=== PATIENT | male | born 1955 | race Caucasian/White ===

== ENCOUNTER 2024-10-08 20:31 | Inpatient (IN) | payer MEDICARE, MEDICAID ==
[~2024-10-08] VITALS: Ht 177.8 cm; Wt 68.9 kg
[2024-10-08] MEDS ORDERED: FOLI-130 PO (20:55)
[2024-10-08] MEDS ORDERED: THIA100T80 PO (20:55)
[2024-10-08] MEDS ORDERED: ATOR40TA28 PO (20:55)
[2024-10-08] MEDS ORDERED: MICO14CR6 TP (20:55)
[2024-10-08] MEDS ORDERED: ACET-2247 PO (20:55)
[2024-10-08] MEDS ORDERED: ALBU18HF12 IH (20:55)
[2024-10-08] MEDS ORDERED: CHOL500013 PO (20:55)
[2024-10-08] MEDS ORDERED: MAGN-169 PO (20:55)
[2024-10-08] MEDS ORDERED: LIDO1ADH72 TP (20:55)
[2024-10-08] MEDS ORDERED: POLYOS OU (20:55)
[2024-10-08] MEDS ORDERED: MULT-413 PO (20:55)
[2024-10-08] MEDS ORDERED: CITA10TA99 PO (20:55)
[2024-10-08] MEDS ORDERED: SENN-376 PO (20:55)
[2024-10-08] MEDS ORDERED: INSLAN SQ (20:55)
[2024-10-08] MEDS ORDERED: CLOP75TA83 PO (20:55)
[2024-10-08] MEDS ORDERED: INSNOV SQ (20:55)
[2024-10-08] MEDS ORDERED: LACT1CAP70 PO (20:55)
[2024-10-08] MEDS ORDERED: ASPI-1444 PO (20:55)
[2024-10-08] MEDS ORDERED: CITA-144 PO (20:55)
[2024-10-08] MEDS ORDERED: MINE133E26 PR (20:55)
[2024-10-08] MEDS ORDERED: METF-1211 PO (20:55)
[2024-10-08] MEDS ORDERED: CEFU250T87 PO (20:55)
[2024-10-08] MEDS ORDERED: PREG75 PO (20:55)
[2024-10-08] MEDS ORDERED: BISA-151 PO (20:55)
[2024-10-08 21:48] LABS: BASOPHILS % (AUTO) 0.5 % (0.0-2.0); EOSINOPHILS % (AUTO) 2.5 % (1.0-6.0); HEMATOCRIT 41.5 % (41-53); HEMOGLOBIN 13.7 g/dL (13.5-17.5); LYMPHOCYTES # (AUTO) 1.4 K/uL (1.0-4.8); LYMPHOCYTES % (AUTO) 14.4 % (22.0-44.0); MEAN CORPUSCULAR HEMOGLOBIN 28.6 pg (26.0-34.0); MEAN CORPUSCULAR VOLUME 87 fL (80-100); MONOCYTES % (AUTO) 10.5 % (2.0-9.0); NEUTROPHILS % (AUTO) 72.1 % (40.0-70.0); PLATELET COUNT (AUTO) 257 K/uL (150-450); RED CELL DISTRIBUTION WIDTH 13.3 % (11.5-14.5); WHITE BLOOD COUNT (AUTO) 9.7 K/uL (4.5-11.0)
[2024-10-08 21:53] LABS: COVID AG,FIA SOURCE NASAL SWAB
[2024-10-08 21:57] LABS: ANION GAP 5 mmol/L (8-16); CARBON DIOXIDE 30 mmol/L (22-29); CHLORIDE 100 mmol/L (98-107); GLOMERULAR FILTR. RATE CALC > 60 mL/min (>60); GLUCOSE,RANDOM 141 mg/dL (70-110); POTASSIUM 4.2 mmol/L (3.5-5.1); SODIUM SERUM 135 mmol/L (136-145); UREA NITROGEN, BLOOD 14 mg/dL (7-18)
[2024-10-08 22:02] LABS: CALCIUM, TOTAL 8.9 mg/dL (8.8-10.5)
[2024-10-08 22:04] LABS: ALCOHOL, BLOOD (SERUM) < 3 mg/dL (0-10)
[2024-10-08 22:13] LABS: SARS-COV2 (COVID) ANTIGEN,FIA Negative (Negative)
[2024-10-09 00:56] LABS: APPEARANCE,URINE CLEAR (CLEAR); BILIRUBIN,URINE NEGATIVE (NEGATIVE); COLOR,URINE LIGHT YELLOW (YELLOW); GLUCOSE, URINE (UA) 70-100 mg/dL (NEGATIVE); KETONES,URINE NEGATIVE (NEGATIVE); LEUKOCYTE ESTERASE ,URINE NEGATIVE (NEGATIVE); NITRATE,URINE NEGATIVE (NEGATIVE); OCCULT BLOOD,URINE SMALL (NEGATIVE); PH,URINE 5.5 (5.0-8.0); PH,URINE DRUG SCREEN 5.5 (5.0-8.0); PROTEIN,URINE NEGATIVE (NEGATIVE); SPECIFIC GRAVITIY, URINE 1.014 (1.003-1.030); UROBILINOGEN,URINE <=1.0 mg/dL (<=1.0)
[2024-10-09 00:58] LABS: BACTERIA,URINE None Seen /HPF (None Seen); SQUAMOUS EPITHELIAL CELL,UR Few /LPF (None Seen); WBC,URINE None Seen /HPF (0-5)
[2024-10-09 01:01] LABS: ALCOHOL, URINE DRUG SCREEN NEGATIVE (NEGATIVE); AMPHET/METH SCREEN,URINE NEGATIVE (NEGATIVE); BARBITURATE SCREEN, URINE NEGATIVE (NEGATIVE); BENZODIAZEPINES SCREEN,URINE NEGATIVE (NEGATIVE); CANNABINOID SCREEN,URINE NEGATIVE (NEGATIVE); COCAINE SCREEN,URINE NEGATIVE (NEGATIVE); METHADONE SCREEN, URINE NEGATIVE (NEGATIVE); OPIATE SCREEN,URINE NEGATIVE (NEGATIVE); PHENCYCLIDINE SCREEN,URINE NEGATIVE (NEGATIVE)
[2024-10-09] MEDS: LORazepam 2 MG TABLET PO PRN (10:23)
[2024-10-09 19:26] LABS: GLUCOMETER DEV NAME(LOC) ERT.6; GLUCOSE,POINT OF CARE 96 MG/DL (70-110)
[2024-10-09] MEDS: haloperidoL LACTATE 5 MG/ML VIAL IM ONE (21:36)
[2024-10-09] MEDS: DiphenhydrAMINE HCL 50 MG/ML VIAL IM ONE (21:36)
[2024-10-09] MEDS: LORazepam 2 MG/ML VIAL IM ONE (21:36)
[2024-10-10 07:21] LABS: GLUCOMETER DEV NAME(LOC) ERT.6; GLUCOSE,POINT OF CARE 116 MG/DL (70-110)
[2024-10-10] MEDS: MetFORMIN HCL 500 MG TABLET PO SCH (08:11)
[2024-10-10] MEDS: CLOPIDOGREL BISULFATE 75 MG TABLET PO SCH (08:11)
[2024-10-10] MEDS: ASPIRIN 81 MG CHEWABLE TABLET PO SCH (08:11)
[2024-10-10] MEDS: INSULIN GLARGINE,HUM.REC.ANLOG 100 UNITS/ML SQ SCH (08:12)
[2024-10-10 12:30] LABS: GLUCOMETER DEV NAME(LOC) ERT.6; GLUCOSE,POINT OF CARE 131 MG/DL (70-110)
[2024-10-10] MEDS: haloperidoL 5 MG TABLET PO PRN (14:56)
[2024-10-10 17:05] LABS: GLUCOMETER DEV NAME(LOC) ERT.6; GLUCOSE,POINT OF CARE 100 MG/DL (70-110)
[2024-10-10] MEDS: ZOLPIDEM TARTRATE 10 MG TABLET PO PRN (21:26)
[2024-10-11] MEDS: LORazepam 2 MG/ML VIAL IVP ONE (03:27)
[2024-10-11] MEDS: ACETAMINOPHEN 325 MG TABLET PO ONE (04:28)
[2024-10-11] MEDS: DiphenhydrAMINE HCL 50 MG/ML VIAL IVP ONE (05:11)
[2024-10-11] MEDS: LORazepam 2 MG/ML VIAL IM ONE (05:11)
[2024-10-11] MEDS: haloperidoL LACTATE 5 MG/ML VIAL IM ONE (05:11)
[2024-10-11 08:55] LABS: GLUCOMETER DEV NAME(LOC) ERT.6; GLUCOSE,POINT OF CARE 122 MG/DL (70-110)
[2024-10-11 23:03] VITALS: BP 148/56; PULSE 66; RESP 18; TEMP 97.3; O2SAT 98
[2024-10-11 23:33] VITALS: BP 148/56; PULSE 66; RESP 18; TEMP 97.3; O2SAT 98
[2024-10-12] MEDS ORDERED: MAGNESIUM HYDROXIDE SUSPENSION 30 ML UDCUP PO PRN (00:15)
[2024-10-12] MEDS ORDERED: DOCUSATE SODIUM 100 MG CAPSULE PO PRN (00:15)
[2024-10-12] MEDS ORDERED: ALBUTEROL SULFATE HFA 90 MCG/PUFF 8 GM INHALER IH PRN (00:15)
[2024-10-12] MEDS ORDERED: MAG HYDROX/ALUMINUM HYD/SIMETH ES 30 ML SUSPENSION UDCUP PO PRN (00:15)
[2024-10-12] MEDS ORDERED: NICOTINE 14 MG/24 HOUR PATCH TD PRN (00:15)
[2024-10-12] MEDS ORDERED: GuaiFENesin/D-METHORPHAN [SUGAR-FREE] 200-20MG/10 ML SYRUP UDCUP PO PRN (00:15)
[2024-10-12] MEDS ORDERED: LOPERAMIDE HCL 2 MG CAPSULE PO PRN (00:15)
[2024-10-12] MEDS ORDERED: ONDANSETRON 4 MG TABLET PO PRN (00:15)
[2024-10-12] MEDS ORDERED: PETROLATUM,WHITE 28 GM JELLY TP PRN (00:15)
[2024-10-12] MEDS ORDERED: DEXTROSE 50%-WATER 25 GM/50 ML SYRINGE IVP PRN (00:30)
[2024-10-12] MEDS: INSULIN LISPRO 100 UNITS/ML SQ PRN (07:06)
[2024-10-12] MEDS: CITALOPRAM HYDROBROMIDE 10 MG TABLET PO SCH (11:00)
[2024-10-12 12:24] VITALS: BP 106/53; PULSE 67; RESP 18; TEMP 96.7; O2SAT 95
[2024-10-12 17:35] LABS: GLUCOMETER DEV NAME(LOC) 3E.I 2; GLUCOSE,POINT OF CARE 126 MG/DL (70-110)
[2024-10-12 21:00] VITALS: BP 172/74; PULSE 80; RESP 18; TEMP 98; O2SAT 96
[2024-10-12 21:21] LABS: GLUCOMETER DEV NAME(LOC) 3E.I 2; GLUCOSE,POINT OF CARE 149 MG/DL (70-110)
[2024-10-12] MEDS: CloNIDine HCL 0.1 MG TABLET PO PRN (21:38)
[2024-10-13 06:56] LABS: GLUCOMETER DEV NAME(LOC) 3E.I 2; GLUCOSE,POINT OF CARE 69 MG/DL (70-110)
[2024-10-13 06:56] LABS: GLUCOMETER DEV NAME(LOC) 3E.I 2; GLUCOSE,POINT OF CARE 78 MG/DL (70-110)
[2024-10-13 07:41] LABS: BASOPHILS % (AUTO) 0.2 % (0.0-2.0); EOSINOPHILS % (AUTO) 1.3 % (1.0-6.0); HEMOGLOBIN 14.7 g/dL (13.5-17.5); LYMPHOCYTES # (AUTO) 1.9 K/uL (1.0-4.8); LYMPHOCYTES % (AUTO) 19.7 % (22.0-44.0); MEAN CORPUSCULAR HEMOGLOBIN 28.8 pg (26.0-34.0); MEAN CORPUSCULAR HGB CONC 33.5 G/dL (31.0-37.0); MEAN CORPUSCULAR VOLUME 86 fL (80-100); MONOCYTES # (AUTO) 1.3 K/uL (0.1-1.0); MONOCYTES % (AUTO) 13.2 % (2.0-9.0); NEUTROPHILS # (AUTO) 6.3 K/uL (1.8-7.7); NEUTROPHILS % (AUTO) 65.6 % (40.0-70.0); PLATELET COUNT (AUTO) 271 K/uL (150-450); RED BLOOD CELL COUNT(AUTO) 5.11 MIL/uL (4.50-5.90); RED CELL DISTRIBUTION WIDTH 13.5 % (11.5-14.5); WHITE BLOOD COUNT (AUTO) 9.6 K/uL (4.5-11.0)
[2024-10-13 08:04] LABS: ALANINE AMINOTRANSFERASE 41 U/L (12-78); ALBUMIN 3.2 g/dL (3.4-5.0); ALKALINE PHOSPHATASE 92 U/L (46-116); ANION GAP 9 mmol/L (8-16); ASPARTATE AMINOTRANSFERASE 26 U/L (15-37); BILIRUBIN,TOTAL 0.6 mg/dL (0.1-1.0); CALCIUM, TOTAL 9.3 mg/dL (8.8-10.5); CARBON DIOXIDE 27 mmol/L (22-29); CHLORIDE 101 mmol/L (98-107); CREATININE 0.66 mg/dL (0.60-1.30); GLOMERULAR FILTR. RATE CALC > 60 mL/min (>60); GLUCOSE,RANDOM 68 mg/dL (70-110); POTASSIUM 3.8 mmol/L (3.5-5.1); SODIUM SERUM 137 mmol/L (136-145); THYROID STIMULATING HORMONE 1.46 uIU/mL (0.36-3.74); TOTAL PROTEIN, SERUM 7.2 g/dL (6.4-8.2); UREA NITROGEN, BLOOD 10 mg/dL (7-18)
[2024-10-13 08:05] LABS: HEMOGLOBIN A1C 11.4 % (3.8-5.6)
[2024-10-13] MEDS: THIAMINE 100 MG TABLET PO SCH (09:00)
[2024-10-13 09:04] LABS: CHOL/HDL RATIO 1.4 (4.2-7.3); CHOLESTEROL 87 mg/dL (131-200); HDL CHOLESTEROL 62 mg/dL (40-60); LDL CHOL (CALC.) 18 mg/dL (0-130); TRIGLYCERIDES 35 mg/dL (15-150)
[2024-10-13 10:36] LABS: GLUCOMETER DEV NAME(LOC) 3EX.2; GLUCOSE,POINT OF CARE 64 MG/DL (70-110)
[2024-10-13 12:26] LABS: GLUCOMETER DEV NAME(LOC) 3EX.2; GLUCOSE,POINT OF CARE 72 MG/DL (70-110)
[2024-10-13 16:35] VITALS: RESP 17
[2024-10-13 21:25] VITALS: RESP 18
[2024-10-14 08:26] VITALS: BP 140/59; PULSE 66; RESP 16; TEMP 97.6; O2SAT 98
[2024-10-14 09:06] LABS: GLUCOMETER DEV NAME(LOC) 3E.I 2; GLUCOSE,POINT OF CARE 128 MG/DL (70-110)
[2024-10-14 21:25] VITALS: RESP 18; TEMP 97.2
[2024-10-15 09:24] VITALS: RESP 20
[2024-10-15 20:10] VITALS: RESP 18
[2024-10-16 08:30] VITALS: RESP 18; TEMP 98
[2024-10-16 12:31] LABS: GLUCOMETER DEV NAME(LOC) 3E.I 2; GLUCOSE,POINT OF CARE 182 MG/DL (70-110)
[2024-10-16 22:04] VITALS: RESP 18
[2024-10-17 09:00] VITALS: BP 119/86; PULSE 74; RESP 18; TEMP 98; O2SAT 97
[2024-10-17 21:39] VITALS: BP 154/89; PULSE 68; RESP 18; TEMP 97.7; O2SAT 98
[2024-10-18 11:50] LABS: GLUCOMETER DEV NAME(LOC) 3EX.2; GLUCOSE,POINT OF CARE 193 MG/DL (70-110)
[2024-10-18 13:22] VITALS: BP 128/95; PULSE 89; RESP 18; TEMP 98.6; O2SAT 97
[2024-10-18 21:12] VITALS: BP 137/54; PULSE 72; RESP 19; TEMP 97.8; O2SAT 96
[2024-10-19 11:19] VITALS: BP 126/54; PULSE 67; RESP 18; TEMP 97.8; O2SAT 97
[2024-10-19] MEDS: PERMETHRIN 1% 60 ML LOTION TP ONE (16:15)
[2024-10-19 17:21] LABS: GLUCOMETER DEV NAME(LOC) 3EX.2; GLUCOSE,POINT OF CARE 111 MG/DL (70-110)
[2024-10-19 20:35] VITALS: BP 137/67; PULSE 80; RESP 18; TEMP 98.1; O2SAT 95
[2024-10-20 12:43] VITALS: BP 132/69; PULSE 81; RESP 18; TEMP 97.8; O2SAT 97
[2024-10-20 21:07] VITALS: RESP 18
[2024-10-21 09:32] VITALS: RESP 18
[2024-10-21 20:47] VITALS: BP 124/61; PULSE 68; RESP 19; TEMP 98.2; O2SAT 94
[2024-10-22 10:13] VITALS: RESP 18
[2024-10-22 20:30] VITALS: BP 140/62; PULSE 69; RESP 18; TEMP 97.5; O2SAT 98
[2024-10-23 20:30] VITALS: BP 146/72; PULSE 68; RESP 19; TEMP 97.2; O2SAT 98
[2024-10-24 09:59] VITALS: BP 102/80; PULSE 68; RESP 17; TEMP 98.1; O2SAT 100
[2024-10-24 22:03] VITALS: RESP 18
[2024-10-25 08:23] VITALS: BP 142/62; PULSE 71; RESP 18; RESP 19; TEMP 98.4; O2SAT 98
[2024-10-25 22:36] VITALS: BP 154/64; PULSE 66; RESP 19; O2SAT 96
[2024-10-26 08:53] VITALS: BP 120/82; PULSE 71; RESP 18; TEMP 98.3; O2SAT 98
[2024-10-26] MEDS ORDERED: ZINC OXIDE 16% PASTE 57 GM TUBE TP PRN (10:45)
[2024-10-26] MEDS: ZINC OXIDE 16% PASTE 57 GM TUBE TP SCH (13:18)
[2024-10-26 22:10] VITALS: BP 170/77; PULSE 82; RESP 18; TEMP 98.1; O2SAT 97
[2024-10-27] MEDS: levoFLOXacin 750 MG TABLET PO SCH (09:23)
[2024-10-27 09:51] LABS: GLUCOMETER DEV NAME(LOC) 3EX.2; GLUCOSE,POINT OF CARE 163 MG/DL (70-110)
[2024-10-27 13:57] VITALS: RESP 18
[2024-10-27 21:12] VITALS: RESP 18
[2024-10-28 06:50] LABS: GLUCOMETER DEV NAME(LOC) 3EX.2; GLUCOSE,POINT OF CARE 124 MG/DL (70-110)
[2024-10-28 19:19] VITALS: RESP 18
[2024-10-28 21:00] VITALS: RESP 18
[2024-10-28 21:11] LABS: GLUCOMETER DEV NAME(LOC) 3EX.2; GLUCOSE,POINT OF CARE 152 MG/DL (70-110)
[2024-10-28] MEDS: TUBERCULIN, PURIFIED PROTEIN DERIVATIVE 5 TU/0.1 ML SYRINGE ID ONE (22:55)
[2024-10-29 06:16] LABS: GLUCOMETER DEV NAME(LOC) 3EX.2; GLUCOSE,POINT OF CARE 129 MG/DL (70-110)
[2024-10-29 10:40] VITALS: RESP 18
[2024-10-29 22:50] VITALS: RESP 18
[2024-10-30 11:09] VITALS: BP 162/65; PULSE 68; RESP 17; TEMP 98.9; O2SAT 99
[2024-10-30 21:26] VITALS: BP 150/65; PULSE 64; RESP 18; TEMP 97.1; O2SAT 96
[2024-10-31 10:59] VITALS: BP 139/60; PULSE 73; RESP 18; TEMP 97.9; O2SAT 99
[2024-10-31 22:49] VITALS: RESP 18
[2024-11-01 06:36] LABS: GLUCOMETER DEV NAME(LOC) 3EX.2; GLUCOSE,POINT OF CARE 127 MG/DL (70-110)
[2024-11-01 10:55] VITALS: BP 131/71; PULSE 131; RESP 18; TEMP 96.8; O2SAT 99
[2024-11-01 12:30] LABS: GLUCOMETER DEV NAME(LOC) 3EX.2; GLUCOSE,POINT OF CARE 238 MG/DL (70-110)
[2024-11-01 22:35] VITALS: RESP 17
[2024-11-02 10:10] LABS: GLUCOMETER DEV NAME(LOC) 3EX.2; GLUCOSE,POINT OF CARE 155 MG/DL (70-110)
[2024-11-02 10:12] VITALS: TEMP 97.8
[2024-11-02 11:50] LABS: GLUCOMETER DEV NAME(LOC) 3EX.2; GLUCOSE,POINT OF CARE 183 MG/DL (70-110)
[2024-11-02 17:31] LABS: GLUCOMETER DEV NAME(LOC) 3EX.2; GLUCOSE,POINT OF CARE 150 MG/DL (70-110)
[2024-11-02 20:53] VITALS: BP 142/60; PULSE 74; RESP 18; TEMP 97.8; O2SAT 96
[2024-11-03 06:26] LABS: GLUCOMETER DEV NAME(LOC) 3EX.2; GLUCOSE,POINT OF CARE 216 MG/DL (70-110)
[2024-11-03 09:21] VITALS: BP 154/67; PULSE 63; RESP 17; TEMP 97.9; O2SAT 95
[2024-11-03 12:25] LABS: GLUCOMETER DEV NAME(LOC) 3EX.2; GLUCOSE,POINT OF CARE 89 MG/DL (70-110)
[2024-11-03 17:05] LABS: GLUCOMETER DEV NAME(LOC) 3EX.2; GLUCOSE,POINT OF CARE 100 MG/DL (70-110)
[2024-11-03 21:30] LABS: GLUCOMETER DEV NAME(LOC) 3EX.2; GLUCOSE,POINT OF CARE 221 MG/DL (70-110)
[2024-11-03 23:40] VITALS: RESP 18; TEMP 97.4
[2024-11-04 07:11] LABS: GLUCOMETER DEV NAME(LOC) 3EX.2; GLUCOSE,POINT OF CARE 137 MG/DL (70-110)
[2024-11-04 10:17] VITALS: BP 149/100; PULSE 68; RESP 17; TEMP 97.6; O2SAT 98
[2024-11-04 11:40] LABS: GLUCOMETER DEV NAME(LOC) 3EX.2; GLUCOSE,POINT OF CARE 126 MG/DL (70-110)
[2024-11-04 16:40] LABS: GLUCOMETER DEV NAME(LOC) 3EX.2; GLUCOSE,POINT OF CARE 114 MG/DL (70-110)
[2024-11-04 21:25] LABS: GLUCOMETER DEV NAME(LOC) 3EX.2; GLUCOSE,POINT OF CARE 151 MG/DL (70-110)
[2024-11-04 22:04] VITALS: RESP 18
[2024-11-05 08:00] VITALS: RESP 18
[2024-11-05 10:46] LABS: GLUCOMETER DEV NAME(LOC) 3EX.2; GLUCOSE,POINT OF CARE 118 MG/DL (70-110)
[2024-11-05 11:51] LABS: GLUCOMETER DEV NAME(LOC) 3EX.2; GLUCOSE,POINT OF CARE 144 MG/DL (70-110)
[2024-11-05 17:56] LABS: GLUCOMETER DEV NAME(LOC) 3EX.2; GLUCOSE,POINT OF CARE 64 MG/DL (70-110)
[2024-11-05 18:46] LABS: GLUCOMETER DEV NAME(LOC) 3EX.2; GLUCOSE,POINT OF CARE 220 MG/DL (70-110)
[2024-11-05 20:18] VITALS: RESP 18
[2024-11-06 07:00] LABS: GLUCOMETER DEV NAME(LOC) 3EX.2; GLUCOSE,POINT OF CARE 75 MG/DL (70-110)
[2024-11-06 09:00] VITALS: BP 150/69; PULSE 76; RESP 16; TEMP 97.6; O2SAT 95
[2024-11-06 10:01] LABS: GLUCOMETER DEV NAME(LOC) 3EX.2; GLUCOSE,POINT OF CARE 229 MG/DL (70-110)
[2024-11-06 11:56] LABS: GLUCOMETER DEV NAME(LOC) 3EX.2; GLUCOSE,POINT OF CARE 196 MG/DL (70-110)
[2024-11-06 17:30] LABS: GLUCOMETER DEV NAME(LOC) 3EX.2; GLUCOSE,POINT OF CARE 222 MG/DL (70-110)
[2024-11-06 22:12] VITALS: BP 150/57; PULSE 71; TEMP 97.2
[2024-11-07 06:15] LABS: GLUCOMETER DEV NAME(LOC) 3EX.2; GLUCOSE,POINT OF CARE 165 MG/DL (70-110)
[2024-11-07 08:28] VITALS: BP 134/92; PULSE 66; RESP 18; TEMP 97.1; O2SAT 97
[2024-11-07 11:50] LABS: GLUCOMETER DEV NAME(LOC) 3EX.2; GLUCOSE,POINT OF CARE 154 MG/DL (70-110)
[2024-11-07 21:00] VITALS: BP 125/73; PULSE 68; RESP 18; TEMP 97.3; O2SAT 97
[2024-11-08 09:35] VITALS: BP 140/89; PULSE 88; RESP 18; TEMP 98.6; O2SAT 97
[2024-11-08 11:46] LABS: GLUCOMETER DEV NAME(LOC) 3EX.2; GLUCOSE,POINT OF CARE 188 MG/DL (70-110)
[2024-11-08 17:15] LABS: GLUCOMETER DEV NAME(LOC) 3EX.2; GLUCOSE,POINT OF CARE 152 MG/DL (70-110)
[2024-11-08 22:19] VITALS: BP 125/55; PULSE 65; RESP 18; TEMP 98.4; O2SAT 99
[2024-11-09 09:16] LABS: GLUCOMETER DEV NAME(LOC) 3EX.2; GLUCOSE,POINT OF CARE 169 MG/DL (70-110)
[2024-11-09 12:44] VITALS: RESP 16
[2024-11-10 00:39] VITALS: RESP 18
[2024-11-10 08:30] VITALS: RESP 18; TEMP 98
[2024-11-10 11:46] LABS: GLUCOMETER DEV NAME(LOC) 3EX.2; GLUCOSE,POINT OF CARE 231 MG/DL (70-110)
[2024-11-10 18:05] LABS: GLUCOMETER DEV NAME(LOC) 3EX.2; GLUCOSE,POINT OF CARE 165 MG/DL (70-110)
[2024-11-10 20:30] VITALS: BP 138/88; PULSE 75; RESP 18; TEMP 97.4; O2SAT 98
[2024-11-11 05:41] LABS: GLUCOMETER DEV NAME(LOC) 3EX.2; GLUCOSE,POINT OF CARE 91 MG/DL (70-110)
[2024-11-11 07:43] LABS: ANION GAP 6 mmol/L (8-16); CALCIUM, TOTAL 8.9 mg/dL (8.8-10.5); CARBON DIOXIDE 31 mmol/L (22-29); CHLORIDE 99 mmol/L (98-107); GLOMERULAR FILTR. RATE CALC > 60 mL/min (>60); GLUCOSE,RANDOM 108 mg/dL (70-110); POTASSIUM 4.4 mmol/L (3.5-5.1); SODIUM SERUM 136 mmol/L (136-145); UREA NITROGEN, BLOOD 14 mg/dL (7-18)
[2024-11-11 08:45] VITALS: BP 145/62; PULSE 73; RESP 18; TEMP 97.5; O2SAT 97
[2024-11-11 17:46] LABS: GLUCOMETER DEV NAME(LOC) 3EX.2; GLUCOSE,POINT OF CARE 142 MG/DL (70-110)
[2024-11-11 20:00] VITALS: BP 148/59; PULSE 71; RESP 18; TEMP 97.9; O2SAT 98
[2024-11-11 20:36] LABS: GLUCOMETER DEV NAME(LOC) 3EX.2; GLUCOSE,POINT OF CARE 170 MG/DL (70-110)
[2024-11-12 09:30] VITALS: BP 157/66; PULSE 65; RESP 18; TEMP 98; O2SAT 100
[2024-11-12 11:41] LABS: GLUCOMETER DEV NAME(LOC) 3EX.2; GLUCOSE,POINT OF CARE 197 MG/DL (70-110)
[2024-11-12 17:36] LABS: GLUCOMETER DEV NAME(LOC) 3EX.2; GLUCOSE,POINT OF CARE 68 MG/DL (70-110)
[2024-11-12 20:50] VITALS: RESP 18
[2024-11-13 06:21] LABS: GLUCOMETER DEV NAME(LOC) 3EX.2; GLUCOSE,POINT OF CARE 158 MG/DL (70-110)
[2024-11-13] MEDS: MULTIVITAMINS WITH MINERALS, THERAPEUTIC TABLET PO SCH (09:29)
[2024-11-13 10:26] VITALS: BP 121/77; PULSE 78; RESP 17; TEMP 97.3; O2SAT 98
[2024-11-13 12:06] LABS: GLUCOMETER DEV NAME(LOC) 3EX.2; GLUCOSE,POINT OF CARE 150 MG/DL (70-110)
[2024-11-13 17:26] LABS: GLUCOMETER DEV NAME(LOC) 3EX.2; GLUCOSE,POINT OF CARE 238 MG/DL (70-110)
[2024-11-13 21:25] LABS: GLUCOMETER DEV NAME(LOC) 3EX.2; GLUCOSE,POINT OF CARE 268 MG/DL (70-110)
[2024-11-13 21:31] VITALS: RESP 18
[2024-11-14 06:15] LABS: GLUCOMETER DEV NAME(LOC) 3EX.2; GLUCOSE,POINT OF CARE 103 MG/DL (70-110)
[2024-11-14 12:00] LABS: GLUCOMETER DEV NAME(LOC) 3EX.2; GLUCOSE,POINT OF CARE 104 MG/DL (70-110)
[2024-11-14 16:19] VITALS: BP 131/61; PULSE 65; RESP 18; TEMP 97.7; O2SAT 99
[2024-11-14 17:56] LABS: GLUCOMETER DEV NAME(LOC) 3EX.2; GLUCOSE,POINT OF CARE 123 MG/DL (70-110)
[2024-11-14 21:06] LABS: GLUCOMETER DEV NAME(LOC) 3EX.2; GLUCOSE,POINT OF CARE 214 MG/DL (70-110)
[2024-11-14 22:53] VITALS: BP 134/59; PULSE 66; RESP 17; O2SAT 98
[2024-11-15 09:44] VITALS: BP 158/70; PULSE 64; RESP 18; TEMP 97.6; O2SAT 99
[2024-11-15 11:16] LABS: GLUCOMETER DEV NAME(LOC) 3EX.2; GLUCOSE,POINT OF CARE 157 MG/DL (70-110)
[2024-11-15 17:50] LABS: GLUCOMETER DEV NAME(LOC) 3EX.2; GLUCOSE,POINT OF CARE 105 MG/DL (70-110)
[2024-11-16 11:31] LABS: GLUCOMETER DEV NAME(LOC) 3EX.2; GLUCOSE,POINT OF CARE 137 MG/DL (70-110)
[2024-11-16 12:11] VITALS: RESP 18; TEMP 97.8
[2024-11-16 17:55] LABS: GLUCOMETER DEV NAME(LOC) 3EX.2; GLUCOSE,POINT OF CARE 157 MG/DL (70-110)
[2024-11-16 21:12] VITALS: BP 144/89; PULSE 77; RESP 18; TEMP 97.1; O2SAT 97
[2024-11-17 11:41] VITALS: BP 135/65; RESP 17; O2SAT 98
[2024-11-17 11:51] LABS: GLUCOMETER DEV NAME(LOC) 3E.I 2; GLUCOSE,POINT OF CARE 82 MG/DL (70-110)
[2024-11-17 18:15] LABS: GLUCOMETER DEV NAME(LOC) 3E.I 2; GLUCOSE,POINT OF CARE 167 MG/DL (70-110)
[2024-11-17 23:16] VITALS: BP 151/65; PULSE 66; RESP 18; TEMP 97.9; O2SAT 100
[2024-11-18 09:21] VITALS: BP 139/60; PULSE 68; RESP 18; TEMP 98.7; O2SAT 100
[2024-11-18 11:01] LABS: GLUCOMETER DEV NAME(LOC) 3E.I 2; GLUCOSE,POINT OF CARE 165 MG/DL (70-110)
[2024-11-18 12:55] LABS: GLUCOMETER DEV NAME(LOC) 3E.I 2; GLUCOSE,POINT OF CARE 174 MG/DL (70-110)
[2024-11-18 18:50] LABS: GLUCOMETER DEV NAME(LOC) 3E.I 2; GLUCOSE,POINT OF CARE 176 MG/DL (70-110)
[2024-11-18 20:23] VITALS: RESP 18
[2024-11-19 08:36] VITALS: BP 108/71; PULSE 62; RESP 18; TEMP 98; O2SAT 98
[2024-11-19 10:41] LABS: GLUCOMETER DEV NAME(LOC) 3E.I 2; GLUCOSE,POINT OF CARE 111 MG/DL (70-110)
[2024-11-19 17:46] LABS: GLUCOMETER DEV NAME(LOC) 3E.I 2; GLUCOSE,POINT OF CARE 63 MG/DL (70-110)
[2024-11-19 19:06] LABS: GLUCOMETER DEV NAME(LOC) 3E.I 2; GLUCOSE,POINT OF CARE 169 MG/DL (70-110)
[2024-11-19 20:31] LABS: GLUCOMETER DEV NAME(LOC) 3E.I 2; GLUCOSE,POINT OF CARE 288 MG/DL (70-110)
[2024-11-19 23:16] VITALS: BP 141/56; PULSE 60; RESP 16; TEMP 97.9; O2SAT 96
[2024-11-20 06:31] LABS: GLUCOMETER DEV NAME(LOC) 3E.I 2; GLUCOSE,POINT OF CARE 85 MG/DL (70-110)
[2024-11-20 11:01] VITALS: BP 126/58; PULSE 65; RESP 18; TEMP 97.2; O2SAT 98
[2024-11-20 12:11] LABS: GLUCOMETER DEV NAME(LOC) 3E.I 2; GLUCOSE,POINT OF CARE 70 MG/DL (70-110)
[2024-11-20 17:15] LABS: GLUCOMETER DEV NAME(LOC) 3E.I 2; GLUCOSE,POINT OF CARE 168 MG/DL (70-110)
[2024-11-20 20:21] LABS: GLUCOMETER DEV NAME(LOC) 3E.I 2; GLUCOSE,POINT OF CARE 214 MG/DL (70-110)
[2024-11-20 23:40] VITALS: BP 119/63; PULSE 67; RESP 18; TEMP 97.4; O2SAT 98
[2024-11-21 05:41] LABS: GLUCOMETER DEV NAME(LOC) 3E.I 2; GLUCOSE,POINT OF CARE 78 MG/DL (70-110)
[2024-11-21 09:00] VITALS: BP 127/70; PULSE 61; RESP 16; TEMP 98; O2SAT 98
[2024-11-21 11:46] LABS: GLUCOMETER DEV NAME(LOC) 3E.I 2; GLUCOSE,POINT OF CARE 101 MG/DL (70-110)
[2024-11-21 18:36] LABS: GLUCOMETER DEV NAME(LOC) 3E.I 2; GLUCOSE,POINT OF CARE 211 MG/DL (70-110)
[2024-11-21 20:15] LABS: GLUCOMETER DEV NAME(LOC) 3E.I 2; GLUCOSE,POINT OF CARE 183 MG/DL (70-110)
[2024-11-21 23:17] VITALS: BP 136/58; PULSE 68; RESP 18; TEMP 97.6; O2SAT 95
[2024-11-22 06:00] LABS: GLUCOMETER DEV NAME(LOC) 3E.I 2; GLUCOSE,POINT OF CARE 116 MG/DL (70-110)
[2024-11-22 12:15] LABS: GLUCOMETER DEV NAME(LOC) 3E.I 2; GLUCOSE,POINT OF CARE 121 MG/DL (70-110)
[2024-11-22 17:56] LABS: GLUCOMETER DEV NAME(LOC) 3E.I 2; GLUCOSE,POINT OF CARE 135 MG/DL (70-110)
[2024-11-22 21:06] LABS: GLUCOMETER DEV NAME(LOC) 3E.I 2; GLUCOSE,POINT OF CARE 105 MG/DL (70-110)
[2024-11-22 21:59] VITALS: BP 124/82; PULSE 63; RESP 18; TEMP 97; O2SAT 97
[2024-11-23 08:25] VITALS: BP 102/60; PULSE 68; RESP 18; TEMP 98.1; O2SAT 98
[2024-11-23 09:56] LABS: GLUCOMETER DEV NAME(LOC) 3E.I 2; GLUCOSE,POINT OF CARE 152 MG/DL (70-110)
[2024-11-23 17:36] LABS: GLUCOMETER DEV NAME(LOC) 3E.I 2; GLUCOSE,POINT OF CARE 195 MG/DL (70-110)
[2024-11-23 21:38] VITALS: BP 140/61; PULSE 60; RESP 18; TEMP 97.7; O2SAT 99
[2024-11-24 09:27] VITALS: BP 141/66; PULSE 65; RESP 17; TEMP 97.8; O2SAT 97
[2024-11-24 10:25] LABS: GLUCOMETER DEV NAME(LOC) 3E.I 2; GLUCOSE,POINT OF CARE 114 MG/DL (70-110)
[2024-11-24 12:15] LABS: GLUCOMETER DEV NAME(LOC) 3E.I 2; GLUCOSE,POINT OF CARE 106 MG/DL (70-110)
[2024-11-24 17:10] LABS: GLUCOMETER DEV NAME(LOC) 3E.I 2; GLUCOSE,POINT OF CARE 105 MG/DL (70-110)
[2024-11-24 22:01] LABS: GLUCOMETER DEV NAME(LOC) 3E.I 2; GLUCOSE,POINT OF CARE 306 MG/DL (70-110)
[2024-11-24 22:40] VITALS: BP 148/62; PULSE 61; RESP 16; TEMP 97.1; O2SAT 98
[2024-11-25 06:06] LABS: GLUCOMETER DEV NAME(LOC) 3E.I 2; GLUCOSE,POINT OF CARE 116 MG/DL (70-110)
[2024-11-25 09:00] VITALS: RESP 18
[2024-11-25 10:51] LABS: GLUCOMETER DEV NAME(LOC) 3E.I 2; GLUCOSE,POINT OF CARE 125 MG/DL (70-110)
[2024-11-25 17:15] LABS: GLUCOMETER DEV NAME(LOC) 3E.I 2; GLUCOSE,POINT OF CARE 87 MG/DL (70-110)
[2024-11-25 22:02] VITALS: RESP 18
[2024-11-26 06:55] LABS: GLUCOMETER DEV NAME(LOC) 3E.I 2; GLUCOSE,POINT OF CARE 59 MG/DL (70-110)
[2024-11-26 06:55] LABS: GLUCOMETER DEV NAME(LOC) 3E.I 2; GLUCOSE,POINT OF CARE 130 MG/DL (70-110)
[2024-11-26 08:15] LABS: BASOPHILS % (AUTO) 0.9 % (0.0-2.0); EOSINOPHILS % (AUTO) 4.1 % (1.0-6.0); HEMOGLOBIN 13.6 g/dL (13.5-17.5); LYMPHOCYTES # (AUTO) 1.4 K/uL (1.0-4.8); LYMPHOCYTES % (AUTO) 24.8 % (22.0-44.0); MEAN CORPUSCULAR HEMOGLOBIN 28.9 pg (26.0-34.0); MEAN CORPUSCULAR HGB CONC 33.1 G/dL (31.0-37.0); MEAN CORPUSCULAR VOLUME 87 fL (80-100); MONOCYTES # (AUTO) 0.8 K/uL (0.1-1.0); MONOCYTES % (AUTO) 14.1 % (2.0-9.0); NEUTROPHILS # (AUTO) 3.1 K/uL (1.8-7.7); NEUTROPHILS % (AUTO) 56.1 % (40.0-70.0); PLATELET COUNT (AUTO) 251 K/uL (150-450); RED BLOOD CELL COUNT(AUTO) 4.69 MIL/uL (4.50-5.90); RED CELL DISTRIBUTION WIDTH 14.1 % (11.5-14.5); WHITE BLOOD COUNT (AUTO) 5.6 K/uL (4.5-11.0)
[2024-11-26 08:46] LABS: ALANINE AMINOTRANSFERASE 15 U/L (12-78); ALBUMIN 2.8 g/dL (3.4-5.0); ALKALINE PHOSPHATASE 74 U/L (46-116); ANION GAP 5 mmol/L (8-16); ASPARTATE AMINOTRANSFERASE 14 U/L (15-37); BILIRUBIN,TOTAL 0.5 mg/dL (0.1-1.0); CALCIUM, TOTAL 8.7 mg/dL (8.8-10.5); CARBON DIOXIDE 29 mmol/L (22-29); CHLORIDE 103 mmol/L (98-107); CREATININE 0.98 mg/dL (0.60-1.30); GLOMERULAR FILTR. RATE CALC > 60 mL/min (>60); GLUCOSE,RANDOM 91 mg/dL (70-110); POTASSIUM 4.1 mmol/L (3.5-5.1); SODIUM SERUM 137 mmol/L (136-145); TOTAL PROTEIN, SERUM 6.3 g/dL (6.4-8.2); UREA NITROGEN, BLOOD 15 mg/dL (7-18)
[2024-11-26 09:32] VITALS: BP 145/60; PULSE 80; RESP 18; TEMP 97.9; O2SAT 97
[2024-11-26 12:16] LABS: GLUCOMETER DEV NAME(LOC) 3E.I 2; GLUCOSE,POINT OF CARE 201 MG/DL (70-110)
[2024-11-26 16:35] LABS: GLUCOMETER DEV NAME(LOC) 3E.I 2; GLUCOSE,POINT OF CARE 95 MG/DL (70-110)
[2024-11-26 20:44] VITALS: BP 134/65; PULSE 65; RESP 17; TEMP 97.5; O2SAT 99
[2024-11-26 21:11] LABS: GLUCOMETER DEV NAME(LOC) 3E.I 2; GLUCOSE,POINT OF CARE 361 MG/DL (70-110)
[2024-11-27 06:01] LABS: GLUCOMETER DEV NAME(LOC) 3E.I 2; GLUCOSE,POINT OF CARE 83 MG/DL (70-110)
[2024-11-27 09:46] LABS: GLUCOMETER DEV NAME(LOC) 3E.I 2; GLUCOSE,POINT OF CARE 102 MG/DL (70-110)
[2024-11-27 12:01] LABS: GLUCOMETER DEV NAME(LOC) 3E.I 2; GLUCOSE,POINT OF CARE 129 MG/DL (70-110)
[2024-11-27 17:21] LABS: GLUCOMETER DEV NAME(LOC) 3E.I 2; GLUCOSE,POINT OF CARE 191 MG/DL (70-110)
[2024-11-27 20:25] LABS: GLUCOMETER DEV NAME(LOC) 3EX.2; GLUCOSE,POINT OF CARE 111 MG/DL (70-110)
[2024-11-27 22:44] VITALS: BP 134/75; PULSE 66; RESP 18; TEMP 97.5; O2SAT 98
[2024-11-28 06:25] LABS: GLUCOMETER DEV NAME(LOC) 3E.I 2; GLUCOSE,POINT OF CARE 78 MG/DL (70-110)
[2024-11-28 08:15] VITALS: BP 135/65; PULSE 65; RESP 18; TEMP 98; O2SAT 95
[2024-11-28 10:31] LABS: GLUCOMETER DEV NAME(LOC) 3E.I 2; GLUCOSE,POINT OF CARE 109 MG/DL (70-110)
[2024-11-28 11:55] LABS: GLUCOMETER DEV NAME(LOC) 3E.I 2; GLUCOSE,POINT OF CARE 146 MG/DL (70-110)
[2024-11-28 17:00] LABS: GLUCOMETER DEV NAME(LOC) 3E.I 2; GLUCOSE,POINT OF CARE 158 MG/DL (70-110)
[2024-11-28 21:05] LABS: GLUCOMETER DEV NAME(LOC) 3E.I 2; GLUCOSE,POINT OF CARE 162 MG/DL (70-110)
[2024-11-29 00:52] VITALS: BP 124/59; PULSE 60; RESP 18; TEMP 97.1; O2SAT 98
[2024-11-29 06:31] LABS: GLUCOMETER DEV NAME(LOC) 3E.I 2; GLUCOSE,POINT OF CARE 80 MG/DL (70-110)
[2024-11-29 12:15] LABS: GLUCOMETER DEV NAME(LOC) 3E.I 2; GLUCOSE,POINT OF CARE 68 MG/DL (70-110)
[2024-11-29 12:52] VITALS: BP 139/58; PULSE 57; RESP 18; TEMP 97.3; O2SAT 97
[2024-11-29 18:06] LABS: GLUCOMETER DEV NAME(LOC) 3E.I 2; GLUCOSE,POINT OF CARE 59 MG/DL (70-110)
[2024-11-29 20:41] LABS: GLUCOMETER DEV NAME(LOC) 3E.I 2; GLUCOSE,POINT OF CARE 53 MG/DL (70-110)
[2024-11-29 21:36] VITALS: BP 134/53; PULSE 52; RESP 18; TEMP 96.7; O2SAT 97
[2024-11-29 22:06] LABS: GLUCOMETER DEV NAME(LOC) 3E.I 2; GLUCOSE,POINT OF CARE 145 MG/DL (70-110)
[2024-11-30 07:06] LABS: GLUCOMETER DEV NAME(LOC) 3E.I 2; GLUCOSE,POINT OF CARE 135 MG/DL (70-110)
[2024-11-30 11:21] LABS: GLUCOMETER DEV NAME(LOC) 3E.I 2; GLUCOSE,POINT OF CARE 115 MG/DL (70-110)
[2024-11-30 12:52] VITALS: BP 130/59; PULSE 53; RESP 17; TEMP 98.1; O2SAT 97
[2024-11-30 20:16] LABS: GLUCOMETER DEV NAME(LOC) 3E.I 2; GLUCOSE,POINT OF CARE 127 MG/DL (70-110)
[2024-11-30 22:11] VITALS: RESP 18
[2024-12-01 06:11] LABS: GLUCOMETER DEV NAME(LOC) 3E.I 2; GLUCOSE,POINT OF CARE 88 MG/DL (70-110)
[2024-12-01 09:00] VITALS: BP 129/72; PULSE 81; RESP 17; TEMP 98.1; O2SAT 97
[2024-12-01 11:16] LABS: GLUCOMETER DEV NAME(LOC) 3E.I 2; GLUCOSE,POINT OF CARE 100 MG/DL (70-110)
[2024-12-01 17:41] LABS: GLUCOMETER DEV NAME(LOC) 3E.I 2; GLUCOSE,POINT OF CARE 122 MG/DL (70-110)
[2024-12-01 21:35] LABS: GLUCOMETER DEV NAME(LOC) 3E.I 2; GLUCOSE,POINT OF CARE 146 MG/DL (70-110)
[2024-12-01 22:56] VITALS: BP 125/63; PULSE 67; RESP 18; TEMP 97.3; O2SAT 97
[2024-12-02 06:25] LABS: GLUCOMETER DEV NAME(LOC) 3E.I 2; GLUCOSE,POINT OF CARE 78 MG/DL (70-110)
[2024-12-02 11:11] LABS: GLUCOMETER DEV NAME(LOC) 3E.I 2; GLUCOSE,POINT OF CARE 83 MG/DL (70-110)
[2024-12-02 16:04] VITALS: BP 131/68; PULSE 72; RESP 18; TEMP 97.7; O2SAT 98
[2024-12-02 17:36] LABS: GLUCOMETER DEV NAME(LOC) 3E.I 2; GLUCOSE,POINT OF CARE 117 MG/DL (70-110)
[2024-12-02 20:10] LABS: GLUCOMETER DEV NAME(LOC) 3E.I 2; GLUCOSE,POINT OF CARE 146 MG/DL (70-110)
[2024-12-02 23:49] VITALS: BP 126/57; PULSE 64; RESP 18; TEMP 97.6; O2SAT 96
[2024-12-03 05:51] LABS: GLUCOMETER DEV NAME(LOC) 3E.I 2; GLUCOSE,POINT OF CARE 94 MG/DL (70-110)
[2024-12-03 12:01] LABS: GLUCOMETER DEV NAME(LOC) 3E.I 2; GLUCOSE,POINT OF CARE 88 MG/DL (70-110)
[2024-12-03 14:11] VITALS: RESP 16
[2024-12-03 17:11] LABS: GLUCOMETER DEV NAME(LOC) 3E.I 2; GLUCOSE,POINT OF CARE 102 MG/DL (70-110)
[2024-12-03 20:15] LABS: GLUCOMETER DEV NAME(LOC) 3E.I 2; GLUCOSE,POINT OF CARE 75 MG/DL (70-110)
[2024-12-03 23:00] VITALS: BP 134/66; PULSE 61; RESP 18; TEMP 97.6
[2024-12-04 06:21] LABS: GLUCOMETER DEV NAME(LOC) 3E.I 2; GLUCOSE,POINT OF CARE 92 MG/DL (70-110)
[2024-12-04 09:44] VITALS: BP 125/62; PULSE 58; RESP 18; TEMP 97.3; O2SAT 97
[2024-12-04 12:01] LABS: GLUCOMETER DEV NAME(LOC) 3E.I 2; GLUCOSE,POINT OF CARE 86 MG/DL (70-110)
[2024-12-04 17:35] LABS: GLUCOMETER DEV NAME(LOC) 3E.I 2; GLUCOSE,POINT OF CARE 93 MG/DL (70-110)
[2024-12-04 20:16] LABS: GLUCOMETER DEV NAME(LOC) 3E.I 2; GLUCOSE,POINT OF CARE 293 MG/DL (70-110)
[2024-12-04 20:27] VITALS: BP 125/63; PULSE 61; RESP 17; TEMP 98; O2SAT 96
[2024-12-05 06:11] LABS: GLUCOMETER DEV NAME(LOC) 3E.I 2; GLUCOSE,POINT OF CARE 70 MG/DL (70-110)
[2024-12-05 08:40] VITALS: BP 136/64; PULSE 60; RESP 18; TEMP 97.8; O2SAT 98
[2024-12-05 11:50] LABS: GLUCOMETER DEV NAME(LOC) 3E.I 2; GLUCOSE,POINT OF CARE 138 MG/DL (70-110)
[2024-12-05 11:50] LABS: GLUCOMETER DEV NAME(LOC) 3E.I 2; GLUCOSE,POINT OF CARE 74 MG/DL (70-110)
[2024-12-05 18:26] LABS: GLUCOMETER DEV NAME(LOC) 3E.I 2; GLUCOSE,POINT OF CARE 77 MG/DL (70-110)
[2024-12-05 20:27] LABS: GLUCOMETER DEV NAME(LOC) 3E.I 2; GLUCOSE,POINT OF CARE 164 MG/DL (70-110)
[2024-12-06 01:01] VITALS: BP 129/67; PULSE 63; RESP 17; TEMP 97.4; O2SAT 97
[2024-12-06 07:11] LABS: GLUCOMETER DEV NAME(LOC) 3E.I 2; GLUCOSE,POINT OF CARE 80 MG/DL (70-110)
[2024-12-06 11:37] VITALS: RESP 16
[2024-12-06 11:46] LABS: GLUCOMETER DEV NAME(LOC) 3E.I 2; GLUCOSE,POINT OF CARE 125 MG/DL (70-110)
[2024-12-06 17:31] LABS: GLUCOMETER DEV NAME(LOC) 3E.I 2; GLUCOSE,POINT OF CARE 78 MG/DL (70-110)
[2024-12-06 20:11] LABS: GLUCOMETER DEV NAME(LOC) 3E.I 2; GLUCOSE,POINT OF CARE 108 MG/DL (70-110)
[2024-12-06 22:46] VITALS: BP 143/64; PULSE 56; RESP 17; TEMP 98.2; O2SAT 97
[2024-12-07 06:36] LABS: GLUCOMETER DEV NAME(LOC) 3E.I 2; GLUCOSE,POINT OF CARE 84 MG/DL (70-110)
[2024-12-07 11:56] LABS: GLUCOMETER DEV NAME(LOC) 3E.I 2; GLUCOSE,POINT OF CARE 130 MG/DL (70-110)
[2024-12-07 14:05] VITALS: BP 124/59; PULSE 89; RESP 18; TEMP 97.2; O2SAT 97
[2024-12-07 17:21] LABS: GLUCOMETER DEV NAME(LOC) 3E.I 2; GLUCOSE,POINT OF CARE 116 MG/DL (70-110)
[2024-12-07 20:35] LABS: GLUCOMETER DEV NAME(LOC) 3E.I 2; GLUCOSE,POINT OF CARE 187 MG/DL (70-110)
[2024-12-07 20:59] VITALS: BP 158/68; PULSE 56; RESP 18; O2SAT 98
[2024-12-08 05:55] LABS: GLUCOMETER DEV NAME(LOC) 3E.I 2; GLUCOSE,POINT OF CARE 92 MG/DL (70-110)
[2024-12-08 09:56] LABS: GLUCOMETER DEV NAME(LOC) 3E.I 2; GLUCOSE,POINT OF CARE 95 MG/DL (70-110)
[2024-12-08 10:03] VITALS: BP 111/69; PULSE 57; RESP 17; TEMP 97.5; O2SAT 95
[2024-12-08 11:46] LABS: GLUCOMETER DEV NAME(LOC) 3E.I 2; GLUCOSE,POINT OF CARE 166 MG/DL (70-110)
[2024-12-08 16:46] LABS: GLUCOMETER DEV NAME(LOC) 3E.I 2; GLUCOSE,POINT OF CARE 89 MG/DL (70-110)
[2024-12-08 20:26] LABS: GLUCOMETER DEV NAME(LOC) 3E.I 2; GLUCOSE,POINT OF CARE 81 MG/DL (70-110)
[2024-12-08 22:53] VITALS: BP 115/72; PULSE 62; RESP 18; TEMP 97.5; O2SAT 98
[2024-12-09 06:31] LABS: GLUCOMETER DEV NAME(LOC) 3E.I 2; GLUCOSE,POINT OF CARE 81 MG/DL (70-110)
[2024-12-09 10:00] VITALS: BP 132/70; PULSE 64; RESP 16; TEMP 97.7; O2SAT 98
[2024-12-09 11:30] LABS: GLUCOMETER DEV NAME(LOC) 3E.I 2; GLUCOSE,POINT OF CARE 63 MG/DL (70-110)
[2024-12-09 13:01] LABS: GLUCOMETER DEV NAME(LOC) 3EX.2; GLUCOSE,POINT OF CARE 146 MG/DL (70-110)
[2024-12-09 16:36] LABS: GLUCOMETER DEV NAME(LOC) 3EX.2; GLUCOSE,POINT OF CARE 105 MG/DL (70-110)
[2024-12-09 20:11] LABS: GLUCOMETER DEV NAME(LOC) 3EX.2; GLUCOSE,POINT OF CARE 130 MG/DL (70-110)
[2024-12-09 21:59] VITALS: BP 131/59; PULSE 58; RESP 18; TEMP 97.9; O2SAT 98
[2024-12-10 06:21] LABS: GLUCOMETER DEV NAME(LOC) 3EX.2; GLUCOSE,POINT OF CARE 134 MG/DL (70-110)
[2024-12-10 10:37] VITALS: BP 108/61; PULSE 60; RESP 18; TEMP 97.5; O2SAT 98
[2024-12-10 11:35] LABS: GLUCOMETER DEV NAME(LOC) 3EX.2; GLUCOSE,POINT OF CARE 165 MG/DL (70-110)
[2024-12-10] MEDS: ACETAMINOPHEN 325 MG TABLET PO PRN (13:28)
[2024-12-10] MEDS: IBUPROFEN 400 MG TABLET PO PRN (13:43)
[2024-12-10 16:51] LABS: GLUCOMETER DEV NAME(LOC) 3EX.2; GLUCOSE,POINT OF CARE 81 MG/DL (70-110)
[2024-12-10 20:25] LABS: GLUCOMETER DEV NAME(LOC) 3EX.2; GLUCOSE,POINT OF CARE 174 MG/DL (70-110)
[2024-12-10 22:49] VITALS: BP 144/64; PULSE 64; RESP 18; TEMP 98.1; O2SAT 98
[2024-12-11 06:30] LABS: GLUCOMETER DEV NAME(LOC) 3EX.2; GLUCOSE,POINT OF CARE 44 MG/DL (70-110)
[2024-12-11] MEDS: GLUCAGON,HUMAN RECOMBINANT 1 MG VIAL IM ONE (06:47)
[2024-12-11 06:50] VITALS: BP 110/60; PULSE 79; RESP 17; TEMP 97.6; O2SAT 97
[2024-12-11 07:25] LABS: GLUCOMETER DEV NAME(LOC) 3EX.2; GLUCOSE,POINT OF CARE 201 MG/DL (70-110)
[2024-12-11] MEDS: BENZOCAINE 10% 7 GM GEL TP PRN (08:40)
[2024-12-11 09:06] LABS: GLUCOMETER DEV NAME(LOC) 3EX.2; GLUCOSE,POINT OF CARE 120 MG/DL (70-110)
[2024-12-11 11:11] VITALS: BP 158/65; PULSE 63; RESP 17; TEMP 97.8; O2SAT 100
[2024-12-11 11:50] LABS: GLUCOMETER DEV NAME(LOC) 3EX.2; GLUCOSE,POINT OF CARE 83 MG/DL (70-110)
[2024-12-11 16:56] LABS: GLUCOMETER DEV NAME(LOC) 3EX.2; GLUCOSE,POINT OF CARE 110 MG/DL (70-110)
[2024-12-11 20:20] LABS: GLUCOMETER DEV NAME(LOC) 3EX.2; GLUCOSE,POINT OF CARE 227 MG/DL (70-110)
[2024-12-11 22:12] VITALS: BP 133/67; PULSE 66; RESP 18; TEMP 97.3; O2SAT 97
[2024-12-12 05:41] LABS: GLUCOMETER DEV NAME(LOC) 3EX.2; GLUCOSE,POINT OF CARE 78 MG/DL (70-110)
[2024-12-12 08:21] LABS: GLUCOMETER DEV NAME(LOC) 3EX.2; GLUCOSE,POINT OF CARE 96 MG/DL (70-110)
[2024-12-12 11:46] LABS: GLUCOMETER DEV NAME(LOC) 3EX.2; GLUCOSE,POINT OF CARE 171 MG/DL (70-110)
[2024-12-12 16:45] LABS: GLUCOMETER DEV NAME(LOC) 3EX.2; GLUCOSE,POINT OF CARE 100 MG/DL (70-110)
[2024-12-12 17:07] VITALS: BP 130/72; PULSE 70; RESP 17; TEMP 97.3; O2SAT 98
[2024-12-12 20:41] LABS: GLUCOMETER DEV NAME(LOC) 3EX.2; GLUCOSE,POINT OF CARE 244 MG/DL (70-110)
[2024-12-12 22:12] VITALS: BP 121/54; PULSE 62; RESP 18; TEMP 98.6; O2SAT 97
[2024-12-13 05:41] LABS: GLUCOMETER DEV NAME(LOC) 3EX.2; GLUCOSE,POINT OF CARE 106 MG/DL (70-110)
[2024-12-13 09:55] VITALS: BP 110/54; PULSE 81; RESP 18; TEMP 97.8; O2SAT 100
[2024-12-13 11:16] LABS: GLUCOMETER DEV NAME(LOC) 3EX.2; GLUCOSE,POINT OF CARE 223 MG/DL (70-110)
[2024-12-13 17:55] LABS: GLUCOMETER DEV NAME(LOC) 3EX.2; GLUCOSE,POINT OF CARE 140 MG/DL (70-110)
[2024-12-13 21:13] VITALS: RESP 18
[2024-12-13 21:15] LABS: GLUCOMETER DEV NAME(LOC) 3EX.2; GLUCOSE,POINT OF CARE 156 MG/DL (70-110)
[2024-12-14 07:10] LABS: GLUCOMETER DEV NAME(LOC) 3EX.2; GLUCOSE,POINT OF CARE 121 MG/DL (70-110)
[2024-12-14 08:21] VITALS: BP 125/54; PULSE 79; RESP 18; TEMP 97.6; O2SAT 97
[2024-12-14 12:21] LABS: GLUCOMETER DEV NAME(LOC) 3EX.2; GLUCOSE,POINT OF CARE 222 MG/DL (70-110)
[2024-12-14 17:20] LABS: GLUCOMETER DEV NAME(LOC) 3EX.2; GLUCOSE,POINT OF CARE 138 MG/DL (70-110)
[2024-12-14 21:25] LABS: GLUCOMETER DEV NAME(LOC) 3EX.2; GLUCOSE,POINT OF CARE 187 MG/DL (70-110)
[2024-12-14 23:30] VITALS: BP 126/80; PULSE 72; RESP 19; TEMP 97.6; O2SAT 96
[2024-12-15 06:11] LABS: GLUCOMETER DEV NAME(LOC) 3EX.2; GLUCOSE,POINT OF CARE 128 MG/DL (70-110)
[2024-12-15 11:46] LABS: GLUCOMETER DEV NAME(LOC) 3EX.2; GLUCOSE,POINT OF CARE 138 MG/DL (70-110)
[2024-12-15 14:21] VITALS: BP 107/72; PULSE 72; RESP 16; TEMP 97.8; O2SAT 98
[2024-12-15 17:25] LABS: GLUCOMETER DEV NAME(LOC) 3EX.2; GLUCOSE,POINT OF CARE 176 MG/DL (70-110)
[2024-12-15 21:30] LABS: GLUCOMETER DEV NAME(LOC) 3EX.2; GLUCOSE,POINT OF CARE 166 MG/DL (70-110)
[2024-12-15 22:47] VITALS: BP 121/84; PULSE 73; RESP 18; TEMP 97.7; O2SAT 97
[2024-12-16 06:40] LABS: GLUCOMETER DEV NAME(LOC) 3EX.2; GLUCOSE,POINT OF CARE 126 MG/DL (70-110)
== END 2024-12-16 11:00 | DRG 885 ==
LOC: EMS 20:31 → 3EX 10-11 22:49 → 3EI 10-21 22:43
PROVIDERS: ADMIT Psychiatry & Neurology Psychiatry; ATTEND Psychiatry & Neurology Psychiatry
PROC: GZHZZZZ Group Psychotherapy (ICD-10-PCS; principal; 2024-10-12)
PROC: GZ52ZZZ Individual Psychotherapy, Cognitive (ICD-10-PCS; 2024-10-13)
DX: F33.1 Major depressive disorder, recurrent, moderate (principal); E78.00 Pure hypercholesterolemia, unspecified; R62.7 Adult failure to thrive; G89.29 Other chronic pain; L60.0 Ingrowing nail; F29 Unspecified psychosis not due to a substance or known physiological condition; Z20.822 Contact with and (suspected) exposure to COVID-19; E11.649 Type 2 diabetes mellitus with hypoglycemia without coma; K59.00 Constipation, unspecified; G62.9 Polyneuropathy, unspecified; Z96.649 Presence of unspecified artificial hip joint; I10 Essential (primary) hypertension; I69.320 Aphasia following cerebral infarction; Z88.0 Allergy status to penicillin; Z79.82 Long term (current) use of aspirin; Z79.02 Long term (current) use of antithrombotics/antiplatelets; Z79.899 Other long term (current) drug therapy; Z79.84 Long term (current) use of oral hypoglycemic drugs; Z68.21 Body mass index [BMI] 21.0-21.9, adult
CPT/HCPCS: 70140; 80048; 80053; 80061; 80307; 81001; 82962; 83036; 83735; 84100; 84443; 85025; 93970; 97112; 97116; 97163; 97167; 97530; 97535; 99285; G0378; G0480; J1200; J1610; J1630; J1815; J2060